=== PATIENT | female | born 1980 | race Two or more races ===

== ENCOUNTER → 2018-11-05 | Outpatient (CLI) | payer MEDICARE ==
--- NOTE | 2018-11-05 17:48 | RAD ---
DATE: 11/05/2018 EXAM: DIGITAL DIAGNOSTIC BILATERAL, BREAST RIGHT HISTORY: Palpable abnormality. Currently lactating. COMPARISON: None This study was interpreted with the benefit of Computerized Aided Detection (CAD). Breast Density: DENSE The breast parenchyma is dense, which could reduce the sensitivity of mammography. Breast parenchyma level density D. FINDINGS: Minimal benign calcification. No mass or distortion identified. No suspicious finding at the site of the marker placement involving the right upper outer breast where palpable abnormality is reported. Limited right breast ultrasound was performed. There is no cyst, mass, or other suspicious finding. No suspicious finding upon physical exam by myself. IMPRESSION: No suspicious finding. Clinical follow-up recommended in determining need for biopsy. BI-RADS CATEGORY: 1 NEGATIVE RECOMMENDED FOLLOW-UP: CLIN FOLLOW UP IMAGING CLINICALLY INDICATED PQRS compliance statement: Patient information was entered into a reminder system with a target due date at the age of 40 years unless clinically indicated to be performed sooner for the next mammogram. Mammography is a sensitive method for finding small breast cancers, but it does not detect them all and is not a substitute for careful clinical examination. A negative mammogram does not negate a clinically suspicious finding and should not result in delay in biopsying a clinically suspicious abnormality. "Our facility is accredited by the [employer] Mammography Program."
== END | disposition home or self-care (01) ==
LOC: MAMMO 12:52
PROVIDERS: ATTEND Obstetrics & Gynecology
DX: R92.1 Mammographic calcification found on diagnostic imaging of breast (principal)
CPT/HCPCS: 76641; 77066